=== PATIENT | male | born 1950 | race Caucasian/White ===

== ENCOUNTER 2019-01-15 03:23 | Inpatient (IN) | payer MEDICARE, OTHER ==
[2019-01-15 03:46] LABS: MODE ROOM AIR; MetHgb Venous 0.3 %; Sample Type Blood venous; Site VENOUS LINE; Venous COHb 0.2 %; Venous Fraction OxyHgb 44.9 %; Venous Oxygen Sat 45.1 mmHG (55.0-75.0); Venous Total Hemglobin 15.7 g/dl
[2019-01-15 03:48] LABS: ADD MAN DIFF? NO
[2019-01-15] MEDS: ALBUTEROL 0.5% (NEB) 2.5 MG/0.5 ML AMP INH (03:52)
[2019-01-15] MEDS: IPRATROPIUM (NEB) 0.5 MG/2.5 ML AMP INH (03:52)
[2019-01-15 04:07] LABS: ANION GAP 9 (5-13); BLOOD UREA NITROGEN 18 mg/dl (7-20); CALCIUM 9.3 mg/dl (8.4-10.2); CARBON DIOXIDE 27 mmol/L (21-31); CHLORIDE 109 mmol/L (97-110); CREATININE 1.34 mg/dl (0.61-1.24); GLUCOSE 121 mg/dl (70-220); SODIUM 145 mmol/L (135-144)
[2019-01-15 04:18] LABS: TROPONIN-I < 0.012 ng/ml (0.000-0.120)
[2019-01-15 04:19] LABS: BASOPHILS % 0.3 % (0.0-2.0); EOSINOPHILS # 0.1 10^3/ul (0.0-0.5); EOSINOPHILS % 0.4 % (0.0-7.0); HEMATOCRIT 45.4 % (42.0-52.0); HEMOGLOBIN 14.6 g/dl (14.0-18.0); LYMPHOCYTES # 1.9 10^3/ul (0.8-2.9); LYMPHOCYTES % 11.7 % (15.0-51.0); MEAN CORPUSCULAR HEMOGLOBIN 29.7 pg (29.0-33.0); MEAN CORPUSCULAR HGB CONC 32.2 g/dl (32.0-37.0); MEAN CORPUSCULAR VOLUME 92.3 fl (82.0-101.0); MEAN PLATELET VOLUME 9.9 fl (7.4-10.4); MONOCYTE # 1.3 10^3/ul (0.3-0.9); MONOCYTES % 8.4 % (0.0-11.0); NEUTROPHIL # 12.4 10^3/ul (1.6-7.5); NEUTROPHILS % 78.6 % (39.0-77.0); PLATELET COUNT 270 10^3/UL (140-415); RED BLOOD COUNT 4.92 10^6/ul (4.70-6.10); RED CELL DISTRIBUTION WIDTH 13.5 % (11.5-14.5)
[2019-01-15 04:19] LABS: WHITE BLOOD COUNT 15.8 10^3/ul (4.8-10.8)
[2019-01-15] MEDS: DEXAMETHASONE 10 MG/ML 1 ML INJ IV (05:09)
[2019-01-15] MEDS ORDERED: ACETAMINOPHEN 325 MG TAB PO ×2 (05:30→07:00)
[2019-01-15] MEDS ORDERED: ONDANSETRON 4 MG INJ IV ×2 (05:30→07:00)
[2019-01-15] MEDS: SODIUM CHLORIDE 0.9% 1L BAG IV* (05:33)
[2019-01-15] MEDS: AZITHROMYCIN 250 MG TAB PO ×2 (05:33→06:13)
[2019-01-15] MEDS: CEFTRIAXONE 1 GM/50 ML (PMX) 50 ML IVPB ×3 (05:38→17:20)
[2019-01-15 06:50] LABS: LACTIC ACID 1.3 mmol/L (0.5-2.0)
[2019-01-15] MEDS ORDERED: NACL 0.9% 3 ML SYG IV (07:00)
[2019-01-15 07:30] LABS: CREATINE KINASE 83 IU/L (23-200)
[2019-01-15 07:40] LABS: CK INDEX 1.3
[2019-01-15 07:44] LABS: TROPONIN-I < 0.012 ng/ml (0.000-0.120)
[2019-01-15] MEDS ORDERED: NON-FORMULARY/PATIENT OWN MED (Budesonide-Formoterol Fumarate* (Symbicort*) 2 PUFF) IH (09:00)
[2019-01-15 09:14] LABS: LACTIC ACID 1.7 mmol/L (0.5-2.0)
[2019-01-15] MEDS: SOD CHLORIDE 0.9% 1,000 ML IV (09:28)
[2019-01-15] MEDS: ARFORMOTEROL TARTRATE 15MCG/2 ML AMP INH ×2 (09:58→19:53)
[2019-01-15] MEDS: BUDESONIDE (NEB) 0.5MG/2ML AMP INH ×2 (09:58→19:52)
[2019-01-15] MEDS: METHYLPREDNISOLONE 125 MG INJ IV (10:40)
[2019-01-15] MEDS: TIOTROPIUM 18 MCG CAPSULE INHA DEV INH (10:41)
[2019-01-15] MEDS: ENOXAPARIN 40 MG/0.4 ML SYG SC (10:46)
[2019-01-15 11:12] LABS: LACTIC ACID 1.9 mmol/L (0.5-2.0)
[2019-01-15 13:40] LABS: CREATINE KINASE 90 IU/L (23-200)
[2019-01-15 13:53] LABS: CK-MB 1.43 ng/ml (0.0-2.4); TROPONIN-I < 0.012 ng/ml (0.000-0.120)
[2019-01-15 13:54] LABS: CK INDEX 1.6
[2019-01-15] MEDS: IPRATROPIUM (NEB) 0.5 MG/2.5 ML AMP NEB ×2 (16:45→22:11)
[2019-01-15] MEDS: LEVALBUTEROL (NEB) 0.63 MG/3 ML AMP HHN ×2 (16:46→22:11)
[2019-01-15] MEDS: ATORVASTATIN 20 MG TAB PO (20:31)
[2019-01-16] MEDS: LEVALBUTEROL (NEB) 0.63 MG/3 ML AMP HHN (04:49)
[2019-01-16] MEDS: IPRATROPIUM (NEB) 0.5 MG/2.5 ML AMP NEB (04:49)
[2019-01-16] MEDS: CEFTRIAXONE 1 GM/50 ML (PMX) 50 ML IVPB (05:03)
[2019-01-16] MEDS: PANTOPRAZOLE (EC) 40 MG TAB PO (05:55)
[2019-01-16] MEDS: AZITHROMYCIN 500MG/NS (PMX) 250 ML IVPB (05:55)
[2019-01-16 06:10] LABS: ADD MAN DIFF? NO
[2019-01-16 06:35] LABS: ABNORMAL IP MESSAGE 1; ALANINE AMINOTRANSFERASE 18 IU/L (13-69); ALBUMIN 3.5 g/dl (3.3-4.9); ALBUMIN/GLOBULIN RATIO 1.29; ALKALINE PHOSPHATASE 63 IU/L (42-121); ANION GAP 8 (5-13); ASPARTATE AMINO TRANSFERASE 18 IU/L (15-46); BASOPHIL # 0.1 10^3/ul (0.0-0.1); BASOPHILS % 0.2 % (0.0-2.0); BILIRUBIN,INDIRECT 0.2 mg/dl (0-1.1); BILIRUBIN,TOTAL 0.2 mg/dl (0.2-1.3); BLOOD UREA NITROGEN 23 mg/dl (7-20); CALCIUM 9.2 mg/dl (8.4-10.2); CARBON DIOXIDE 25 mmol/L (21-31); CHLORIDE 109 mmol/L (97-110); CHOL/HDL RATIO 3.4 RATIO; CHOLESTEROL 143 mg/dl (100-200); CREATININE 1.09 mg/dl (0.61-1.24); GLUCOSE 139 mg/dl (70-220); HDL CHOLESTEROL 41 mg/dl (31-75); HEMATOCRIT 39.7 % (42.0-52.0); HEMOGLOBIN 12.9 g/dl (14.0-18.0); LDL CHOLESTEROL,CALCULATED 87 mg/dl; LYMPHOCYTES # 1.3 10^3/ul (0.8-2.9); LYMPHOCYTES % 5.1 % (15.0-51.0); MAGNESIUM 1.8 mg/dl (1.7-2.5); MEAN CORPUSCULAR HEMOGLOBIN 29.7 pg (29.0-33.0); MEAN CORPUSCULAR HGB CONC 32.5 g/dl (32.0-37.0); MEAN CORPUSCULAR VOLUME 91.5 fl (82.0-101.0); MEAN PLATELET VOLUME 10.2 fl (7.4-10.4); MONOCYTE # 1.2 10^3/ul (0.3-0.9); MONOCYTES % 4.8 % (0.0-11.0); NEUTROPHIL # 22.3 10^3/ul (1.6-7.5); NEUTROPHILS % 89.1 % (39.0-77.0); PLATELET COUNT 294 10^3/UL (140-415); POSITIVE DIFF @See below; POTASSIUM 4.1 mmol/L (3.5-5.1); RED BLOOD COUNT 4.34 10^6/ul (4.70-6.10); RED CELL DISTRIBUTION WIDTH 13.4 % (11.5-14.5); SODIUM 142 mmol/L (135-144); TOTAL PROTEIN 6.2 g/dl (6.1-8.1); TRIGLYCERIDES 73 mg/dl (0-149)
[2019-01-16 06:35] LABS: WHITE BLOOD COUNT 25.1 10^3/ul (4.8-10.8)
[2019-01-16] MEDS ORDERED: GUAIFENESIN/CODEINE 5ML CUP PO (07:00)
[2019-01-16 07:04] LABS: THYROID STIMULATING HORMONE 0.153 MIU/L (0.465-4.680)
[2019-01-16 07:44] LABS: HEMOGLOBIN A1C 5.5 % (0-5.9)
[2019-01-16] MEDS: TIOTROPIUM 18 MCG CAPSULE INHA DEV INH (08:15)
[2019-01-16] MEDS: METHYLPREDNISOLONE 125 MG INJ IV (08:16)
[2019-01-16] MEDS: ENOXAPARIN 40 MG/0.4 ML SYG SC (08:20)
[2019-01-16] MEDS: ARFORMOTEROL TARTRATE 15MCG/2 ML AMP INH (08:36)
[2019-01-16] MEDS: ACETYLCYSTEINE 20% 4 ML VIAL NEB (08:37)
[2019-01-16] MEDS: BUDESONIDE (NEB) 0.5MG/2ML AMP INH (08:37)
== END 2019-01-16 15:00 | disposition home or self-care (01) | DRG 871 ==
LOC: E/R 03:23 → PP2 05:27
DX: A41.9 Sepsis, unspecified organism (principal); J14 Pneumonia due to Hemophilus influenzae; J15.0 Pneumonia due to Klebsiella pneumoniae; J44.1 Chronic obstructive pulmonary disease with (acute) exacerbation; N17.9 Acute kidney failure, unspecified; E86.0 Dehydration; J20.9 Acute bronchitis, unspecified; E78.5 Hyperlipidemia, unspecified; Z87.891 Personal history of nicotine dependence
CPT/HCPCS: 36415; 71045; 71250; 80048; 80053; 80061; 82550; 82553; 82803; 83036; 83605; 83735; 84443; 84484; 85025; 87040-91; 87070; 87086; 93005; 94640; 94644; 94664; 96374; 99285-25; G0378